=== PATIENT | female | born 2000 | race Two or more races ===

== ENCOUNTER 2021-06-26 03:00 | Emergency (ER) | payer SELFPAY ==
[~2021-06-26] VITALS: Ht 172.7 cm; Wt 80.0 kg
[2021-06-26] MEDS ORDERED: OLANZAPINE 10 MG/VIAL IM ONE (03:30)
[2021-06-26] MEDS ORDERED: LORAZEPAM 2MG/ML CPJ IM ONE (03:30)
[2021-06-26 05:06] LABS: BASOPHILS % 0.5 % (0.0-2.0); EOSINOPHILS % 0.1 % (0.0-5.0); HEMATOCRIT. 39.1 % (36.0-48.0); HEMOGLOBIN. 13.5 g/dL (12.0-16.0); MEAN CORPUSCULAR HEMOGLOBIN 33.4 pg (28.0-32.0); MEAN CORPUSCULAR VOLUME 96.6 fL (81.0-99.0); MEAN PLATELET VOLUME 8.8 fl (7.4-10.4); MONOCYTES % 6.9 % (2.0-8.0); NEUTROPHILS % 76.5 % (40.0-76.0); PLATELET 188 x1000/uL (130-400); RED BLOOD CELL COUNT 4.04 mill/uL (4.2-5.4); RED CELL DISTRIBUTION WIDTH 14.5 % (11.6-14.6)
[2021-06-26 05:15] LABS: CHLORIDE 113 mEq/L (98-107)
[2021-06-26 05:26] LABS: ETHANOL BLOOD < 10 mg/dL
[2021-06-26 05:26] LABS: *AMPHETAMINES SCREEN URINE NEGATIVE (NEGATIVE); *BARBITURATES SCREEN URINE NEGATIVE (NEGATIVE); *BENZODIAZEPINES SCREEN URINE NEGATIVE (NEGATIVE); *COCAINE SCREEN URINE NEGATIVE (NEGATIVE); METHADONE URINE SCREEN NEGATIVE (NEGATIVE); OPIATES URINE SCREEN NEGATIVE (NEGATIVE); PHENCYCLIDINE URINE SCREEN NEGATIVE (NEGATIVE)
[2021-06-26 05:30] LABS: CANNABINOID URINE SCREEN PRESUMTIVE POSITIVE (NEGATIVE)
[2021-06-26 10:40] VITALS: BP 110/54
== END 2021-06-26 11:06 | disposition home or self-care (01) ==
LOC: ER 03:00
DX: F91.1 Conduct disorder, childhood-onset type (principal); F19.10 Other psychoactive substance abuse, uncomplicated
CPT/HCPCS: 36415; 80053; 80305; 80307; 80320; 80329; 82962; 85025; 99291; J2060; J3490; G0480

== ENCOUNTER 2021-09-12 07:32 | Emergency (ER) | payer OTHER ==
[~2021-09-12] VITALS: Ht 172.7 cm; Wt 87.8 kg
[2021-09-12] MEDS ORDERED: SODIUM CHLORIDE 0.9% 1,000 ML IV ONE (08:00)
[2021-09-12] MEDS ORDERED: IOHEXOL-350 100 ML BOTTLE ONE (08:21)
[2021-09-12 08:47] LABS: BASOPHILS % 0.5 % (0.0-2.0); EOSINOPHILS % 1.8 % (0.0-5.0); HEMATOCRIT. 40.1 % (36.0-48.0); HEMOGLOBIN. 13.1 g/dL (12.0-16.0); LYMPHOCYTES % 28.5 % (20.0-50.0); MEAN CORPUSCULAR HEMOGLOBIN 32.5 pg (28.0-32.0); MEAN CORPUSCULAR VOLUME 99.8 fL (81.0-99.0); MEAN PLATELET VOLUME 8.8 fl (7.4-10.4); MONOCYTES % 12.3 % (2.0-8.0); NEUTROPHILS % 56.9 % (40.0-76.0); PLATELET 221 x1000/uL (130-400); RED BLOOD CELL COUNT 4.02 mill/uL (4.2-5.4); RED CELL DISTRIBUTION WIDTH 15.3 % (11.6-14.6)
[2021-09-12 08:55] LABS: CHLORIDE 109 mEq/L (98-107)
[2021-09-12 08:56] LABS: PROTHROMBIN TIME 10.9 sec (9.6-11.0)
[2021-09-12 09:01] LABS: HCG SCREEN INDETERMINATE
[2021-09-12 09:06] LABS: ETHANOL BLOOD < 10 mg/dL
[2021-09-12 09:25] LABS: CLARITY URINE CLOUDY (CLEAR); COLOR URINE DARK YELLOW (YELLOW); KETONES URINE TRACE (NEGATIVE); LEUKOCYTE ESTERASE URINE 2+ (NEGATIVE); NITRITE URINE NEGATIVE (NEGATIVE); OCCULT BLOOD URINE NEGATIVE (NEGATIVE); PROTEIN URINE TRACE (NEGATIVE); SPECIFIC GRAVITY URINE 1.031 (1.005-1.030)
[2021-09-12 09:43] LABS: *AMPHETAMINES SCREEN URINE NEGATIVE (NEGATIVE); *BARBITURATES SCREEN URINE NEGATIVE (NEGATIVE); *BENZODIAZEPINES SCREEN URINE NEGATIVE (NEGATIVE); METHADONE URINE SCREEN NEGATIVE (NEGATIVE); OPIATES URINE SCREEN NEGATIVE (NEGATIVE); PHENCYCLIDINE URINE SCREEN NEGATIVE (NEGATIVE)
[2021-09-12 10:20] LABS: *COCAINE SCREEN URINE PRESUMTIVE POSITIVE (NEGATIVE); CANNABINOID URINE SCREEN PRESUMTIVE POSITIVE (NEGATIVE)
[2021-09-12] MEDS ORDERED: DIPHENHYDRAMINE 50MG/ML VIAL IV ONE (11:45)
[2021-09-12] MEDS ORDERED: KETOROLAC 30MG/ML VIAL IV ONE (11:45)
[2021-09-12] MEDS ORDERED: DIPHENHYDRAMINE 50MG/ML VIAL IV SCH (12:30)
[2021-09-12] MEDS ORDERED: IBUP-2030 MT (12:47)
[2021-09-12] MEDS ORDERED: NITR-87 MT (12:47)
[2021-09-12] MEDS ORDERED: KETOROLAC 30MG/ML VIAL IV SCH (13:00)
[2021-09-12 13:15] VITALS: BP 115/77
== END 2021-09-12 13:02 | disposition home or self-care (01) ==
LOC: ER 08:07 → EDBEDREQTM 12:07 → EDBEDREQSVC 12:07 → ER 13:02 → CMPBEDREQ 09-13 01:40
DX: R51.9 Headache, unspecified (principal); F14.10 Cocaine abuse, uncomplicated; F41.9 Anxiety disorder, unspecified; N39.0 Urinary tract infection, site not specified; N60.09 Solitary cyst of unspecified breast
CPT/HCPCS: 36415; 70450; 70551; 71045; 76642; 80053; 80305; 80320; 81003; 81025; 82962; 83690; 84484; 84702; 84703; 85025; 85610; 93005; 96360; 99285; J7030; Q9967; G0480

== ENCOUNTER 2021-10-02 03:35 | Emergency (ER) | payer OTHER ==
[~2021-10-02] VITALS: Ht 175.3 cm; Wt 82.0 kg
[~2021-10-02 03:35] MED LIST: IBUP-2030 MT; NITR-87 MT
[2021-10-02 03:43] VITALS: BP 121/70
== END 2021-10-02 08:18 | disposition left against medical advice (07) ==
LOC: ER 03:35
DX: Z53.21 Procedure and treatment not carried out due to patient leaving prior to being seen by health care provider (principal); M41.9 Scoliosis, unspecified

== ENCOUNTER 2022-07-02 23:44 | Emergency (ER) | payer OTHER ==
[~2022-07-02] VITALS: Ht 170.2 cm; Wt 100.0 kg
[2022-07-03 01:26] LABS: CLARITY URINE TURBID (CLEAR); COLOR URINE DARK YELLOW (YELLOW); KETONES URINE 3+ (NEGATIVE); LEUKOCYTE ESTERASE URINE 1+ (NEGATIVE); NITRITE URINE NEGATIVE (NEGATIVE); OCCULT BLOOD URINE 2+ (NEGATIVE); PH URINE 5.5 (4.5-8.0); PROTEIN URINE 1+ (NEGATIVE); SPECIFIC GRAVITY URINE 1.038 (1.005-1.030)
[2022-07-03 03:55] LABS: BASOPHILS % 0.6 % (0.0-2.0); EOSINOPHILS % 0.5 % (0.0-5.0); HEMATOCRIT. 38.9 % (36.0-48.0); HEMOGLOBIN. 12.9 g/dL (12.0-16.0); LYMPHOCYTES % 25.3 % (20.0-50.0); MEAN CORPUSCULAR VOLUME 96.5 fL (81.0-99.0); MEAN PLATELET VOLUME 8.3 fl (7.4-10.4); MONOCYTES % 8.5 % (2.0-8.0); NEUTROPHILS % 65.1 % (40.0-76.0); PLATELET 242 x1000/uL (130-400); RED BLOOD CELL COUNT 4.03 mill/uL (4.2-5.4); RED CELL DISTRIBUTION WIDTH 14.7 % (11.6-14.6)
[2022-07-03 04:13] VITALS: BP 122/76
[2022-07-03] MEDS ORDERED: CEPH250C2 MT (04:20)
== END 2022-07-03 04:54 ==
LOC: ER 23:48
DX: O23.31 Infections of other parts of urinary tract in pregnancy, first trimester (principal); Z3A.01 Less than 8 weeks gestation of pregnancy; F41.9 Anxiety disorder, unspecified
CPT/HCPCS: 36415; 76801; 81003; 81025; 84702; 85025; 99284

== ENCOUNTER 2022-11-09 09:12 | Observation (INO) | payer OTHER, MEDICAID ==
[~2022-11-09] VITALS: Ht 162.6 cm; Wt 91.6 kg
[~2022-11-09 09:12] MED LIST changes: +CEPH250C2 MT
[2022-11-09 13:26] VITALS: BP 108/59; PULSE 81; TEMP 97.7
[2022-11-09] MEDS ORDERED: LACTATED RINGERS 1,000 ML IV SCH ×2 (13:30→14:22)
== END 2022-11-09 18:00 | disposition home or self-care (01) ==
LOC: 8 EST LDRP 09:12
PROVIDERS: ADMIT Specialist; ATTEND Specialist
DX: O26.892 Other specified pregnancy related conditions, second trimester (principal); R10.2 Pelvic and perineal pain; R10.30 Lower abdominal pain, unspecified; Z3A.24 24 weeks gestation of pregnancy
CPT/HCPCS: 59025; 96360; 96361; 82731; G0378 ×2; 99281